=== PATIENT | female | born 1995 | race Caucasian/White ===

== ENCOUNTER 2024-03-22 15:00 | Outpatient (REF) | payer BC, SELFPAY ==
--- NOTE | 2024-03-22 13:40 | PAPFT_PTH ---
PATIENT: AMY FOREMAN LOC: [facility] U#:[id number] AGE/SX: 28/F ROOM: RE03/22/[address]: Princess Bay MD : 1995 BED: DIS: 03/22/2024 SPEC #: [id number] RECD: 03/22/24 16:39 STATUS: SEGUN REQ #: [id number] MIKE: 03/22/24 13:[address]: Princess Bay DEPT: [facility] Cytology RECD BY: Ernestina Sullivan ENTERED: 03/22/24 16:39 SP TYPE: PAPFT KHRIS DR: Unknown,Unknown Tissues: 1 - CX/ENDOCX FOR PAP SMEARS Procedures: PAP THIN PREP/[facility] Screening HPV DNA PROBE Comments: [id number] (HPV 16 & 18/45)
== END 2024-03-22 15:01 | disposition home or self-care (01) ==
LOC: LBN 15:00
PROVIDERS: Visit Provider Obstetrics & Gynecology
DX: Z01.419 Encounter for gynecological examination (general) (routine) without abnormal findings (principal); R03.0 Elevated blood-pressure reading, without diagnosis of hypertension
CPT/HCPCS: 88142; 87624

== ENCOUNTER 2024-04-10 15:00 | Outpatient (CLI) | payer BC, SELFPAY ==
[2024-04-10 11:16] LABS: HCT 42.7 % (36.0-46.0); HGB 15.1 g/dL (11.2-15.7); MCH 31.5 pg (27.0-33.0); MCHC 35.4 % (32.0-36.0); MCV 89 fL (80-95); MPV 9.7 fL (8.0-11.0); Platelet Count 210 10^3/uL (130-400); RDW 11.4 % (11.7-14.6); RDW-SD 36.9 fL; WBC 11.77 10^3/uL (4.4-10.8)
[2024-04-10 11:40] LABS: ALT 10 U/L (14-59); AST 9 U/L (15-37); Albumin 4.2 g/dL (3.4-5.0); Alkaline Phosphatase 48 U/L (46-116); Anion Gap 8.2 mmol/L (3-11); BUN 9 mg/dL (7-18); Bilirubin, Total 0.94 mg/dL (0.2-1.0); CO2 26.8 mmol/L (21.0-32.0); CREATININE 0.9 mg/dL (0.55-1.02); Chloride 106 mmol/L (98-107); Glucose 101 mg/dL (74-106); HCG Quant, Pregnancy 478 mIU/mL (1-3); Potassium 4.4 mmol/L (3.5-5.1); Sodium 141 mmol/L (136-145); Total Protein 6.9 g/dL (6.4-8.2)
== END 2024-04-10 15:01 | disposition home or self-care (01) ==
LOC: LBO 15:01
PROVIDERS: Visit Provider Obstetrics & Gynecology
DX: O36.80X0 Pregnancy with inconclusive fetal viability, not applicable or unspecified (principal); Z34.91 Encounter for supervision of normal pregnancy, unspecified, first trimester
CPT/HCPCS: 36415; 80053; 85027; 84702